=== PATIENT | female | born 1945 | race Caucasian/White ===

== ENCOUNTER 2025-06-12 12:44 | Outpatient (CLI) | payer MEDICARE, SELFPAY ==
--- NOTE | 2025-06-12 13:00 | XR_ITS ---
WS: [id number] DEXA (DUAL ENERGY X-RAY ABSORPTIOMETRY) Bone mineral density was performed using a [employer] machine. HISTORY: ASYMPTOMATIC MENOPAUSAL STATE COMPARISON: 10/12/2018 Lumbar spine BMD (L1-L4): 1.309 g/cm2 T score: 1.1 Z score: 2.0 Total hip BMD: Left: 0.951 g/cm2. T score: -0.4 Z score: 1.0 Right: 0.987 g/cm2. T score: -0.2 Z score: 1.3 10 year probability of a major osteoporotic fracture is 18.9%. Compared to the prior study from 10/12/2018. Lumbar spine bone mineral density has increased by 6.0%. Bilateral hips bone mineral density has increased by 1.4%. XR/XR DEXA axial skeleton* [id number] IMPRESSION: NORMAL BONE MINERAL DENSITY based upon the WHO classification for females. Significant increase in bone mineral density in the lumbar spine since the prio r study. No significant change of the hips.
== END 2025-06-12 12:45 | disposition home or self-care (01) ==
LOC: RAD 12:51
PROVIDERS: Family Provider Electrodiagnostic Medicine; PCP Electrodiagnostic Medicine; Visit Provider Electrodiagnostic Medicine
DX: Z13.820 Encounter for screening for osteoporosis (principal); Z78.0 Asymptomatic menopausal state
CPT/HCPCS: 77080